=== PATIENT | female | born 1990 | race Caucasian/White ===

== ENCOUNTER 2017-04-05 04:45 | Inpatient (IN) | payer OTHER ==
[2017-04-05] MEDS ORDERED: PROMETHAZINE HCL 25 MG/1 ML VIAL IVPUSH ONE (05:53)
[2017-04-05] MEDS ORDERED: BUTORPHANOL TARTRATE 1 MG/ML VIAL IVPB ONE (05:53)
--- NOTE | 2017-04-05 06:14 | HP ---
Past Medical History - Primary Care Physician PCP:: Renata Morrow - Admission Chief Complaint: 26 yrs , 39 weeks iup, onset LP since .2.oo AM .. pt in early labor . History of Present Illness: pt was seen in [facility] , L&D , she walked ot from there due to unpleasant experience. care [facility] in [place] . work Up ; O Pos, AFP neg, HBSAg neg, Hep C Ab neg, Hiv neg, Lead neg, Pap 9 11/08/16) Nilm, Rpr nr, , h/h 10.9/33.4, Plt 484, Gc/Ct neg, Urine culture GBS Pos ( 02/06/17),, treated with Keflex , follow up urine c/s neg 1Hr Gtt 105, Hgb ( sickle Cell Trait) , Rubella iimune, Quantiferon neg TDAP taken 23.5 weeks sono noted anatomy normal . History Source: Patient, Medical Record Limitations to Obtaining History: No Limitations - Past Medical History ARCHITECT MARINE: No: Migraine, Seizure Cardiovascular: Yes: Other (h/o gestational hypertension during 2016 (last ) pregn). No: HTN, Murmur Pulmonary: No: Asthma Gastrointestinal: No: Gastritis, GERD Renal/: Yes: UTI (gbs bacteriuria, rx with keflex 02/08/17) ...: 5 ...Para: 2 ...Term: 2 ...Spon : 1 ...Induced : 1 ...LMP: 07/06/16 ... Weeks Gestation by Dates: 39 ...EDC by Dates: 04/12/17 ...EDC by Sono: 04/12/17 Additional OB History: G3 10/31/2014 40 weeks epidural. G4 01/28/2016 40 weeks epidural , h/o gestational Hypertension Heme/Onc: Yes: Anemia ( vit) Infectious Disease: No: HIV, STD's Psych: Yes: Panic (pt was at [facility] , transferred to [place] as per medical records) Endocrine: No: Diabetes Mellitus, Hypothyroidism - Past Surgical History Hx Myomectomy: No Hx Transabdominal Cerclage: No Additional Surgical History: 2011, h/o laproscopy for Lt Adneaxal mass at [facility] - Smoking History Smoking history: Never smoked - Alcohol/Substance Use Hx Alcohol Use: No History of Substance Use: reports: None Home Medications - Allergies Allergies/Adverse Reactions: Allergies Allergy/AdvReac Type Severity Reaction Status Date / Time No Known Allergies Allergy Verified 04/05/17 05:53 - Home Medications Home Medications: Ambulatory Orders Vit #76/Iron,Carb/FA [Pnv 29-1 Tablet] 1 each PO DAILY 04/05/17 Physical Exam - Maternity Constitutional: Yes: Moderate Distress (screaming with each UC or movement ) Eyes: Yes: WNL HENT: Yes: WNL, Normocephalic Neck: Yes: WNL Cardiovascular: Yes: WNL, Regular Rate and Rhythm Lungs: Clear to auscultation Breast(s): Yes: WNL (large breasts) - Abdominal Exam/OB Fundal Height: 38 Number of Fetuses: Single Presentation: Vertex Contractions: Yes Regularity: Irregular Intensity: Mild Monitor Mode: External Heart Rate (range): 130 Heart Rate Location: [facility] Category: I Accelerations: Uniform Decelerations: None - Vaginal Exam/OB Vaginal Bleediing: No Speculum Exam: No Dilatation (cm): 2-3 Effacement (%): 70 Amniotic Membrane Status: Intact Presentation: Vertex/Position Station: -3 - Physical Exam Musculoskeletal: Yes: WNL Extremities: Yes: WNL. No: Calf Tenderness Edema: Yes Edema: LLE: 1+, RLE: 1+ Integumentary: Yes: Tattoos Deep Tendon Reflex Grade: Normal +2 ...Motor Strength: WNL Psychiatric: Yes: WNL, Alert, Oriented - Labs Lab Results: Laboratory Tests 04/05/17 04/05/17 04/05/17 06:30 06:30 06:30 WBC 9.4 Hgb 10.1 L Hct 30.4 L Plt Count 421 Neutrophils % 68.5 Lymphocytes % 23.9 INR 1.03 PTT (Actin FS) 30.2 Sodium Potassium Chloride Carbon Dioxide BUN Creatinine Random Glucose Opiates Screen Methadone Screen Barbiturate Screen Phencyclidine Screen Ur Amphetamines Screen MDMA (Ecstasy) Screen Benzodiazepines Screen Cocaine Screen U Marijuana (THC) Screen HIV 1&2 Antibody Screen HIV P24 Antigen Blood Type O POSITIVE 04/05/17 04/05/17 04/05/17 06:30 06:30 06:30 WBC Hgb Hct Plt Count Neutrophils % Lymphocytes % INR PTT (Actin FS) Sodium 137 Potassium 3.9 Chloride 106 Carbon Dioxide 22 BUN 4 L Creatinine 0.6 Random Glucose 81 Opiates Screen Negative Methadone Screen Negative Barbiturate Screen Negative Phencyclidine Screen Negative Ur Amphetamines Screen Negative MDMA (Ecstasy) Screen Negative Benzodiazepines Screen Negative Cocaine Screen Negative U Marijuana (THC) Screen Negative HIV 1&2 Antibody Screen Negative HIV P24 Antigen Negative Blood Type Problem List - Problems (1) with 39 completed weeks gestation Code(s): Z3A.39 - 39 WEEKS GESTATION OF (2) Labor established Code(s): DQU8369 - (3) GBS (group B streptococcus) UTI complicating Code(s): O23.40 - UNSP INFECTION OF URINARY TRACT IN , UNSP TRIMESTER B95.1 - STREPTOCOCCUS, GROUP B, CAUSING DISEASES CLASSD [id number] Qualifiers: Trimester: second trimester Qualified Code(s): O23.42 - Unspecified infection of urinary tract in , second trimester; B95.1 - Streptococcus , group B, as the cause of diseases classified elsewhere Assessment/Plan 26 yrs , 39 weeks iup, care elsewhere, h/o GBS Bacteriuria , sickle cell trait Plan : ambulation gbs prophylaxis labor analgesia epidural trial vaginal delivery pitocin augmentation prn
[2017-04-05] MEDS ORDERED: AMPICILLIN - 2 GM in SODIUM CHLORIDE 100 ML IVPB ONE (06:30)
[2017-04-05] MEDS: ELECTROLYTE-148 SOLN 1,000 ML IV SCH ×2 (06:30→09:00)
[2017-04-05 06:33] VITALS: BMI 29.5
[2017-04-05 06:46] LABS: BASOPHIL 0.3 % (0-2.0); EOSINOPHIL 0.9 % (0-4.5); MCH 23.6 pg (25.7-33.7); MCHC 33.3 g/dl (32.0-36.0); MEAN CELL VOLUME 70.7 fl (80-96); MEAN PLT VOLUME 7.5 fl (7.5-11.1); NEUTROPHILS 68.5 % (42.8-82.8); PLATELET COUNT 421 K/MM3 (134-434); RDW 15.7 % (11.6-15.6); WHITE BLOOD COUNT 9.4 K/mm3 (4.0-10.0)
[2017-04-05 07:11] LABS: INR 1.03 (0.82-1.09); PROTHROMBIN TIME (PATIENT) 11.3 SEC (9.98-11.88)
[2017-04-05 07:13] LABS: ACTIVATED PTT 30.2 SECONDS (26.9-34.4)
[2017-04-05 07:17] LABS: ANION GAP 9 (8-16); CALCIUM 8.7 mg/dL (8.5-10.1); CO2 22 mmol/L (21-32); CREATININE 0.6 mg/dL (0.55-1.02); GLUCOSE,RANDOM 81 mg/dL (74-106)
[2017-04-05 07:31] LABS: HIV 1 & 2 AB NEGATIVE; HIV 1 AGp24 NEGATIVE
[2017-04-05 07:42] LABS: URINE MARIJUANA THC NEGATIVE ng/ml (CUTOFF=50)
[2017-04-05] MEDS ORDERED: FENTANYL/BUPIVACAINE/NS/PF - PCEA - 50 ML DISP.SYRIN EP SCH ×2 (08:40→09:11)
[2017-04-05] MEDS ORDERED: OXYTOCIN 15 UNITS/ LR 250 ML 250 ML IVPB SCH (09:45)
--- NOTE | 2017-04-05 09:46 | PN ---
Progress Note, Labor Vaginal Exam #1 Labor Exam Date: 04/05/17 Labor Exam Time: 07:50 Heart Rate (range): 130 Dilatation: 4-5 Effacement (%): 80 Amniotic Membrane Status: Intact Presentation: Vertex/Position Station: -3 Remarks: uc are irregular 3-6 min , mod . fhr cat -1 pt requests for epidural 8.40 am epidural is given. 9.45 am Pitocin augmentation Selected Entries 04/05/17 09:30 Pulse Rate 89 Blood Pressure 110/76 Vaginal Exam #2 Labor Exam Date: 04/05/17 Labor Exam Time: 10:20 Heart Rate (range): 130 Dilatation: 10 Effacement (%): 100 Amniotic Membrane Status: Ruptured (AROM clear , moderate) Presentation: Vertex/Position Station: +2 Remarks: UC q3-4 min FHR cat-1 pt c/o pain. can push Selected Entries 04/05/17 10:15 Pulse Rate 104 H Blood Pressure 118/76
[2017-04-05] MEDS ORDERED: AMPICILLIN - 1 GM in SODIUM CHLORIDE 100 ML IVPB SCH (09:58)
[2017-04-05] MEDS: D5W-LR W/ 20 UNITS OXYTOCIN 1,000 ML IV SCH ×2 (10:40→11:50)
[2017-04-05] MEDS ORDERED: WITCH HAZEL 50% (TUCKS) 40 PAD/JAR PAD TP PRN (11:45)
[2017-04-05] MEDS ORDERED: BISACODYL 10 MG SUPP.RECT RC PRN (11:45)
[2017-04-05] MEDS ORDERED: oxyCODONE HCL 5 MG TABLET PO PRN (11:45)
[2017-04-05] MEDS ORDERED: BENZOCAINE 28 GM HEMORRHOIDAL OINTMENT TP PRN (11:45)
[2017-04-05] MEDS ORDERED: METHYLERGONOVINE MALEATE 0.2 MG/1 ML AMP IM PRN (11:45)
[2017-04-05] MEDS ORDERED: BENZOCAINE 20% 57 GM BOTTLE TP PRN (11:45)
--- NOTE | 2017-04-05 11:45 | PN ---
Delivery - Delivery Vaginal Delivery: No Problems, Spontaneous Type of Anesthesia: Epidural Episiotomy/Laceration: None EBL (cc): 200 Delivery, Single - Stages of Labor Date 1st Stage Initiatied: 04/05/17 Time 1st Stage Initiated: 02:00 Date 2nd Stage Initiated: 04/05/17 Time 2nd Stage Initiated: 10:20 Date of Delivery: 04/05/17 Time of Delivery: 10:33 Time Placenta Delivered: 10:40 Placenta: Yes: Spontaneous, Uterine Exploration - Condition of Research And Development Researcher/Emergency Dispatch Operator Present: No Gender: Female Weight: 6 lb 7 oz Position: Left, OA Total Hours ROM (Hrs/Mins): 0hrs 20min - 1 Minute Total Score: 9 5 Minutes Total Score: 9 - [place] Feeding Plan Initial Plan: Exclusive throughout hospitalization Remarks - Remarks Remarks: 26 yrs , 39 weeks admitted in labor . Care Elsewhere Gbs pos , rx IV Ampicillin x2 doses Intra course uneventful
[2017-04-05] MEDS: FERROUS SO4 325 MG TABLET (FP) PO SCH (17:43)
[2017-04-05] MEDS: ACETAMINOPHEN 325 MG TABLET (FP) PO PRN (17:47)
[2017-04-05] MEDS: IBUPROFEN 600 MG TABLET (FP) PO PRN (17:48)
--- NOTE | 2017-04-06 07:51 | PN ---
Progress Note (short form) - Note Progress Note: ppd 1 doing well, has cough, no chest pain, no dyspnia, no excess vaginal bleeding CBC, BMP 04/05/17 06:30 04/05/17 06:30 Last Vital Signs Temp Pulse Resp BP Pulse Ox 98.1 F 64 20 95/53 99 04/06/17 06:00 04/06/17 06:00 04/06/17 06:00 04/06/17 06:00 04/05/17 11:39 uterus firm, non tender no cva lochia mild no calf tenderness plan ambulate, cbc robitussin for bronchitis
[2017-04-06] MEDS: FERROUS SO4 325 MG TABLET (FP) PO SCH ×2 (08:08→17:42)
[2017-04-06] MEDS ORDERED: guaiFENesin 200 MG/10 ML 10 ML UNIT-DOSE CUPS PO PRN (08:39)
[2017-04-06 08:51] LABS: BASOPHIL 0.3 % (0-2.0); EOSINOPHIL 0.9 % (0-4.5); MCH 23.6 pg (25.7-33.7); MCHC 33.1 g/dl (32.0-36.0); MEAN CELL VOLUME 71.4 fl (80-96); MEAN PLT VOLUME 7.4 fl (7.5-11.1); NEUTROPHILS 69.5 % (42.8-82.8); PLATELET COUNT 389 K/MM3 (134-434); WHITE BLOOD COUNT 10.1 K/mm3 (4.0-10.0)
[2017-04-06] MEDS: PRENATAL VITAMINS W/ FOLIC ACID TABLET (FP) PO SCH (09:13)
[2017-04-06] MEDS: ACETAMINOPHEN 325 MG TABLET (FP) PO PRN ×2 (11:37→20:41)
[2017-04-06] MEDS: IBUPROFEN 600 MG TABLET (FP) PO PRN ×2 (11:38→20:41)
[2017-04-06] MEDS ORDERED: SENNOSIDES/DOCUSATE COMBO (SENNA PLUS) TABLET (UD) PO PRN (22:00)
--- NOTE | 2017-04-07 08:01 | DS ---
Physical Exam-MANAGER STATE Vital Signs: Vital Signs Temperature 97.6 F 04/06/17 22:00 Pulse Rate 77 04/06/17 22:00 Respiratory Rate 20 04/06/17 22:00 Blood Pressure 112/74 04/06/17 22:00 O2 Sat by Pulse Oximetry (%) 99 04/05/17 11:39 Constitutional: Yes: Well Nourished Eyes: Yes: WNL HENT: Yes: WNL Neck: Yes: WNL Cardiovascular: Yes: WNL Respiratory: Yes: WNL Gastrointestinal: Yes: WNL ...Rectal Exam: Yes: WNL Renal/: Yes: WNL ....Post : Yes: Uterus firm, Uterus non-tender, Moderate lochia rubra ( perineum intact) Breast(s): Yes: WNL (BF) Musculoskeletal: Yes: WNL Extremities: Yes: WNL. No: Calf Tenderness Edema: Yes Edema: LLE: Trace, RLE: Trace Integumentary: Yes: Tattoos Neurological: Yes: WNL, Alert, Oriented ...Motor Strength: WNL Psychiatric: Yes: WNL, Alert, Oriented Labs: CBC, BMP 04/06/17 07:30 04/05/17 06:30 Delivery - Delivery Vaginal Delivery: No Problems, Spontaneous Type of Anesthesia: Epidural Episiotomy/Laceration: None EBL (cc): 200 Delivery, Single - Stages of Labor Date 1st Stage Initiatied: 04/05/17 Time 1st Stage Initiated: 02:00 Date 2nd Stage Initiated: 04/05/17 Time 2nd Stage Initiated: 10:20 Date of Delivery: 04/05/17 Time of Delivery: 10:33 Time Placenta Delivered: 10:40 Placenta: Yes: Spontaneous, Uterine Exploration - Condition of Stamp Pad Finisher/Plate Gauger Present: No Infant Gender: Female Weight: 6 lb 7 oz Position: Left, OA Total Hours ROM (Hrs/Mins): 0hrs 20min - 1 Minute Total Score: 9 5 Minutes Total Score: 9 - [place] Feeding Plan Initial Plan: Exclusive throughout hospitalization Remarks - Remarks Remarks: 26 yrs , 39 weeks admitted in labor . Care Elsewhere Gbs pos , rx IV Ampicillin x2 doses Intra course uneventful . pp course uneventful discharge today. Discharge Summary Reason For Visit: LABOR Current Active Problems GBS (group B streptococcus) UTI complicating (Acute) Labor established (Acute) Normal spontaneous vaginal delivery (Acute) with 39 completed weeks gestation (Acute) Condition: Stable - Instructions Diet, Activity, Other Instructions: Post Instructions DIET: Continue good diet high in protein, calcium, and iron rich foods. Drink at least eight (8) glasses of water daily in addition to other fluids. ct Regular diet MEDICATIONS: Continue vitamins and iron as previously directed. Motrin and Tylenol may be taken for minor discomfort. ACTIVITY: Mild to moderate exercise may be started in two (2) weeks. Take frequent rest periods. Resume normal activity after six (6) week check up. WOUND CARE OF OPERATIVE SITE: Continue use of perineal bottle until vaginal discharge stops. Keep area clean. Shower daily. Keep abdominal wound dry. Report any drainage or redness to physician. Tub baths, tampons and douches are not permitted for [address] Breast feeding & or Bottle feeding BREAST CARE: (For those that are not breast feeding): If engorgement occurs: Wear tight fitting bra. Take Tylenol or Motrin for pain. Apply cold packs (ice in bags to each breast ) FAMILY PLANNING: There are many control alternatives to pursue and they should be discussed at your first office visit. You may resume sexual activity after your six (6) week check up. (Remember, breast feeding is not a contraceptive) NEXT PHYSICIAN APPOINTMENT: Be certain to call for a six (6) week appointment, unless otherwise directed. Call Clinic or got to Emergency Dept if you have any of the following: Heavy vaginal bleeding Painful urination Leg pain Unusual odor noted to vaginal bleeding High fever Red streaking noted on breast Referrals: Renata Morrow MD [Family Provider] - Disposition: HOME - Home Medications Comprehensive Discharge Medication List: Ambulatory Orders Vit #76/Iron,Carb/FA [Pnv 29-1 Tablet] 1 each PO DAILY 04/05/17 Acetaminophen [Tylenol .Regular Strength -] 650 mg PO Q3H PRN #0 tablet Ibuprofen [Motrin -] 200 mg PO Q4H PRN #0 tablet 04/06/17 Vitamins (Sjr) - 1 tab PO DAILY tablet 04/06/17
[2017-04-07] MEDS: IBUPROFEN 600 MG TABLET (FP) PO PRN ×2 (08:59→13:39)
[2017-04-07] MEDS: FERROUS SO4 325 MG TABLET (FP) PO SCH (08:59)
[2017-04-07] MEDS: ACETAMINOPHEN 325 MG TABLET (FP) PO PRN ×2 (09:00→13:38)
[2017-04-07] MEDS: PRENATAL VITAMINS W/ FOLIC ACID TABLET (FP) PO SCH (09:01)
[2017-04-07 09:48] VITALS: BP 118/70; PULSE 97; TEMP 98.3
== END 2017-04-07 15:45 | disposition home or self-care (01) | DRG 560 ==
LOC: JDEL 04:45 → JLDR 05:40 → J3W 12:10
PROVIDERS: ADMIT Obstetrics & Gynecology; ATTEND Obstetrics & Gynecology
PROC: 10907ZC Drainage of Amniotic Fluid, Therapeutic from Products of Conception, Via Natural or Artificial Opening (ICD-10-PCS; principal; 2017-04-05)
PROC: 10E0XZZ Delivery of Products of Conception, External Approach (ICD-10-PCS; 2017-04-05)
DX: O99.824 Streptococcus B carrier state complicating childbirth (principal); Z3A.39 39 weeks gestation of pregnancy; Z37.0 Single live birth
CPT/HCPCS: 36415; 59409; 80048; 80307; 85025; 85610; 85730; 86593; 86850; 86900; 86901; 87389